=== PATIENT | male | born 1945 ===

== ENCOUNTER 2024-10-12 13:56 | Outpatient (AMB) | payer MEDICARE, MEDICAID, SELFPAY ==
--- NOTE | 2024-10-12 14:09 | MHC.OFFVIS ---
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 There was reported in the history about lightheadedness although patient says that he just slipped and fell out of the shower at his daughter's place in [facility]. Patient was then brought to the emergency room there and add observation and subsequently an echocardiogram which showed hyperdynamic LV ejection fraction with asymmetric left ventricular hypertrophy suggestive of hypertrophic cardiomyopathy. Patient also was noted to have PACs. Patient was started on Eliquis although from the records it is not clear why he was started on Eliquis. Does not recall ever being told that he had a stroke or atrial fibrillation. This part of the history is unclear. Have tried to contact the daughter to get more information regarding this. For now will continue Eliquis. He said he has had irregular pulse ever since he was in the [employer]. He occasionally feels a skipped heartbeats but does not have any prolonged palpitation irregular heartbeat. He said he is generally very functional and active and denies any lightheadedness or syncope. Does have history of hypertension, hyperlipidemia as well as diabetes. Never had a coronary event or has no evidence of coronary artery disease in the past. His EKGs abnormal. He smokes. He said today he slipped on ice and fell but was able to brace his fall and had some facial scrapes. Did not lose consciousness. Did not have a head injury. Denies any headache or any other neurologic symptoms. FORMERLY [facility], [facility] Family History Father No problems noted. Mother HTN (hypertension) Social History Patient Tobacco Use Status: Current everyday Tobacco user Review of Systems Const Denies chills, Denies daytime sleepiness, Denies fatigue, Denies fever(s), Denies frequent falls, Denies poor appetite, Denies snoring, Denies stops breathing during sleep, Denies weakness, Denies weight gain and Denies weight loss Eyes Denies loss of vision ENT Denies dizziness and Denies hearing loss Card Denies chest pain, Denies claudication, Denies leg edema, Denies lightheadedness, Denies palpitations, Denies dyspnea, Denies dyspnea on exertion and Denies orthopnea Resp Denies cough, Denies excessive phlegm production, Denies dyspnea, Denies dyspnea on exertion, Denies snoring and Denies wheezing GI Denies abdominal pain, Denies hematochezia, Denies change in bowel habits, Denies nausea and Denies vomiting Denies dysuria and Denies urinary frequency Musc Denies arthralgias, Denies muscle weakness, Denies numbness and Denies other (frequent falls) Skin/Breast Denies nail changes and Denies rash Neuro Denies Abnormal speech present, Denies dizziness, Denies frequent falls, Denies loss of vision, Denies memory loss, Denies numbness and Denies weakness Psych Denies depression and Denies memory loss Endo Denies fatigue and Denies palpitations Igor/Lymph Reports easy bruising and Reports other (anemia) Aller/Immun Denies wheezing Physical Exam Vital Signs: Last Vital Signs Pulse 58 10/12/24 14:11 BP 118/80 10/12/24 14:11 BMI result Body Mass Index 28.6 Const General: cooperative, comfortable, no acute distress, alert and awake Nutritional Appearance: overweight Orientation/consciousness: patient oriented x3 Limitations: no limitations HEENT Head: Yes normocephalic and Yes other (Some scrape on his nose) Neck Neck: Yes trachea midline, Yes supple and Yes no JVD Chest Chest palpation & inspection: normal inspection of the chest Resp Effort & Inspection: normal respiratory effort Auscultation: clear to auscultation bilaterally and diminished lung sounds Cardio Jugular venous distension: no JVD Rate: regular rate Rhythm: abnormal rhythm with ectopic beats Heart sounds: S1 normal heart sound present, S2 normal heart sound present, no click, no gallops, no murmurs and no rubs GI Auscultation: normal bowel sounds Skin General skin exam: no rashes or lesions noted Neuro General: patient oriented x3 and no focal motor deficits Speech: No Abnormal speech present Extrem General: Yes no clubbing, cyanosis or edema Psych Appearance: grossly normal Office Procedures EKG Details: EKG shows sinus bradycardia with PACs with diffuse T-wave changes in the precordial leads which may suggest ischemia versus repolarization abnormality with underlying right bundle-branch block [id number], Complete Assessment & Plan Assessment & Plan (1) Cardiac arrhythmia: Code(s): I49.9 - Cardiac arrhythmia, unspecified Category: Medical Plan: Cardiac arrhythmias in this elderly gentleman with predominantly noted to be having PACs. This could be precursor for atrial fibrillation. There was no mentioned of atrial fibrillation in the charts from an outside hospital. However it is likely that he could have asymptomatic atrial fibrillation. I would for now continue his Eliquis therapy. I would suggest a 30 day event monitor to assess for presence of atrial fibrillation that would then require lifelong Eliquis therapy. In absence of atrial fibrillation on event monitor not sure what the indication for Eliquis is, would like to obtain records and or talk to the daughter regarding prescription of Eliquis. For now continue Eliquis. Semi annual renal function test should be pursued. I have Holter monitor from June which showed a wide complex tachycardia which could represent nonsustained VT versus atrial tach with aberrancy. Will need ischemic workup, see below (2) Abnormal EKG: Code(s): R94.31 - Abnormal electrocardiogram [ECG] [EKG] Category: Medical Plan: Abnormal EKG in this elderly gentleman with multiple risk factors clinically hypertension, diabetes, smoking, hyperlipidemia. I will require ischemic workup to rule out any evidence of significant myocardial ischemia. Obtain a 30 day event monitor as about to assess for arrhythmia burden on current therapy with metoprolol. Could be related to hypertrophic cardiomyopathy. (3) Hypertrophic cardiomyopathy: Code(s): I42.2 - Other hypertrophic cardiomyopathy Category: Medical Plan: Hypertrophic cardiomyopathy without any obstructive physiology. Currently not having any symptoms. Continue metoprolol therapy. Will obtain a exercise stress test to evaluate for arrhythmic burden and blood pressure changes. Also 30 day event monitor to see if he has persistent wide complex tachycardia/nonsustained ventricular tachycardia that may require further evaluation with cardiac MRI. Will follow with him in 3 months time. Thank you for allowing me to partake in his care Orders: Orders CA stress test Today R94.31 - Abnormal electrocardiogram [ECG] [EKG] ECG 30 day event monitor Today I49.9 - Cardiac arrhythmia, unspecified NM cardiolite stress test 2 Weeks R07.9 - Chest pain, unspecified, R94.31 - Abnormal electrocardiogram [ECG] [EKG] Coding Level of Care Code New Pt Level 4 (34864) Complex EM visit Add On G2211 Diagnoses Cardiac arrhythmia I49.9 Abnormal EKG R94.31 Hypertrophic cardiomyopathy I42.2 CPT Codes EKG - CPT: 35792-[id number], Complete ([id number])
[2024-10-12 14:11] VITALS: BP 118/80; PULSE 58; BMI 28.6
--- OUTSIDE RECORDS SUMMARY | 2024-10-12 14:14 | XMS_ITS | Encounter Summary ---
Author Organization [facility], Located [facility] Address [address] [place] [address] Care Team Providers Care Pipe Line Maintenance Supervisor Name Role Phone Hank Aceves MD Primary Care Provider [phone] Encounter Details Date Type Department Care Team ([facility] st Contact Info) Description 09/06/2024 Telephone Formerly [facility] Heart & Vascular [place] [address] [phone] Jai Nation MD [address] [place] [phone] Social History Tobacco Use Types Packs/Day Years Used Date Smoking Tobacco: Never Assessed Sex and Gender Information Value Date Recorded Sex Assigned at Not on file Gender Identity Not on file Sexual Orientation Not on file documented as of this encounter Miscellaneous Notes * Telephone Encounter - Mae Obrien - 09/07/2024 1:31 PM EST Pt's primary care refilled his Eliquis FYI * Telephone Encounter - Elvia Nava MA - 09/07/2024 11:57 AM EST TCTP LVM we have consent on file to speak to selin. * Telephone Encounter - Jai Nation MD - 09/06/2024 12:59 PM EST Sure we can refill eliquis . Thanks. Send it in and I will sign the prescription. * Telephone Encounter - Jai Nation MD - 09/06/2024 12:58 PM EST Which pills are we talking about. * Telephone Encounter - Elvia Nava MA - 09/06/2024 12:30 PM EST Will you cont to filll these meds. You treated this pt at . Or should I verify that he has a PCP that can fill them for him? Pt will not being fup with you for care. * Telephone Encounter - Mae Obrien - 09/06/2024 11:19 AM EST Pt's daughter is expecting a call back today. * Telephone Encounter - Mae Obrien - 09/06/2024 10:47 AM EST Pt was prescribed medication in the hospital when he saw Dr Covarrubias. He is not currently a Pt. 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 Pt's daughter states Dr Covarrubias was adamant about him staying on meds. Daughter wants to know if Dr Covarrubias can prescribe meds until he is estab lished with his new provider. documented in this encounter Plan of Treatment Not on file documented as of this encounter Visit Diagnoses Not on filedocumented in this encounter Care Teams Pipe Line Maintenance Supervisor Relationship Specialty Start Date End Date Hank Aceves MD [address] [place] [id number] PCP - General Internal Medicine 07/06/24 documented as of this encounter
--- OUTSIDE RECORDS SUMMARY | 2024-10-12 14:14 | XMS_ITS | Clinical Summary ---
Author Organization [address] Address [address] [place] [phone] Phone Care Team Providers Care Brim Stiffener Name Role Phone Hank Aceves MD Primary Care Provider [phone] Allergies No known active allergies Medications losartan (COZAAR) 100 mg tablet Take 1 tablet (100 mg total) by mouth daily. Active metFORMIN (GLUCOPHAGE) 500 mg Immediate Release tablet Take 1 tablet (500 mg total) by mouth daily with breakfast. Active metoprolol succinate XL (TOPROL-XL) 100 mg 24 hr tablet Take 1 tablet (100 mg total) by mouth daily. Take with or immediately following a meal. Active simvastatin (ZOCOR) 20 mg tablet Take 1 tablet (20 mg total) by mouth nightly. Active aspirin 81 mg chewable tablet Take 1 tablet (81 mg total) by mouth daily. 30 tablet 4 Active Active Problems Problem Noted Date Diagnosed Date Near syncope 07/04/2024 Type 2 diabetes mellitus 07/04/2024 Social History Tobacco Use Types Packs/Day Years Used Date Smoking Tobacco: Every Day Cigarettes Tobacco Cessation:Ready to Q uit: Not Asked; Counseling Given: Not Answered Alcohol Use Standard Drinks/Week Comments Yes 0 (1 standard drink = 0.6 oz pur e alcohol) rarely [facility] Utilities Answer Date Recorded In the past 12 months has [employer], gas, oil, or water [employer] threatened to shut off services in your home? No 07/04/2024 AUDIT-C Answer Date Recorded Q1: How often do you have a drink containing alcohol? Never 07/04/2024 Q2: How many drinks containi ng alcohol do you have on a typical day when you are drinking? Patient does not drink Q3: How often do you have si x or more drinks on one occasion? Never 07/04/2024 PHQ-2 Answer Date Recorded PHQ-2 Total Score 0 07/04/2024 Hunger Vital Sign Answer Date Recorded Within the past 12 months, y ou worried that your food would run out before you got the money to buy more. Never true 07/04/20 24 Within the past 12 months, t he food you bought just didn't last and you didn't have money to get more. Never true 07/04/2024 PRAPARE - Transportation Answer Date Re corded In the past 12 months, has l ack of transportation kept you from medical appointments or from getting medications? No 06/24 In the past 12 months, has l ack of transportation kept you from meetings, work, or from getting things needed for daily living? No 07/04/2024 Housing Stability Answer Date Recorded What is your living situation today? I have a [facility] place to live 07/04/2024 Housing Stability Not on file 07/04/2024 Interpersonal Safety Answer Date Record ed Is there anyone in your life that is hurting or threatening you in anyway? no 07/04/2024 Physical Indicators of Abuse No evidence of phys ical abuse 07/04/2024 Sex and Gender Information Value Date Recorded Sex Assigned at Not on file Legal Sex Male 1:18 PM EST Gender Identity Male 07/04/2024 1:35 PM EST Sexual Orientation Not on file Last Filed Vital Signs Vital Sign Reading Time Taken Comments Blood Pressure 151/83 07/06/2024 5:25 AM EST Pulse 53 07/06/2024 5:25 AM EST Temperature 36.5 ??C (97.7 ??F) 07/06/2024 5:25 AM ES T Respiratory Rate 18 07/06/2024 5:25 AM EST Oxygen Saturation 94% 07/06/2024 5:25 AM EST Inhaled Oxygen Concentration - - Weight 74.7 kg (164 lb 10.9 oz) 07/04/2024 1:26 PM EST Height 167.6 cm (5' 6 ) 07/04/2024 1:26 PM EST Body Mass Index 26.58 07/04/2024 1:26 PM EST Plan of Treatment Health Maintenance Due Date Last Done Comments Pneumococcal Vaccine (50+ ye ars) (1 of 2 - PCV) 01/28/1951 Diabetic eye exam 01/28/1956 Diabetic foot exam 01/28/1956 Hemoglobin A1C 01/28/1956 Urine Microalbumin 01/28/1956 HIV screening 1959 Hepatitis C screening 01/28/1964 Tetanus adult (Td q 10,TDAP once) 1966 Lung Cancer Screening 01/28/1996 Shingles vaccine (Shingrix) (1 of 2 - Shingrix (RZV) 2 Dose Standard Series) 01/28/1996 RSV Discussion (1 - 1-dose 7 5+ series) 2021 Influenza vaccine 03/24/2024 Covid-19 vaccine series (2023- season) 2024 LDL monitoring 07/05/2025 07/05/2024 Meningococcal Vaccine Aged Out No glenny joanna eligible based on patient's age to complete this topic Procedures Procedure Name Priority Date/Time Associated Diagnosis Comments LIPID PANEL Routine 07/05/2024 5:20 AM EST from Last 3 Months or Most Recently Relevant to Health Maintenance Results * Lipid panel (07/05/2024 5:20 AM EST) Cholesterol 131 See Comment mg/dL 07/05/2024 12:33 PM [facility] Comment: Cholesterol Reference Range: ? Desirable: ?? <200 mg/dL ? Borderline: ??200-240 mg/dL ? High Risk: ?? >240 mg/dL HDL 45 See Comment mg/dL 07/05/2024 12:33 PM [facility] Comment: HDL Reference Range: Low: <40 High: > or = 60 Triglycerides 114 See Comment mg/dL 07/05/2024 12:33 PM [facility] Comment: Triglyceride Reference Range: ?Normal: ? <150 mg/dL ?Borderline High: ??150-199 mg/dL ?High: ? 200-499 mg/dL ?Very High: ?>or= 500 mg/dL LDL Calculated 65 See Comment mg/dL 07/05/2024 12:33 PM EST [facility] Comment: Effective 01/29/2022, LDL is calculated using the Rivera-NIH equation, which is more accurate than the Friedewald and Bennett-Farooq equations. LDL Reference Range: Optimal: ? <100 mg/dL Near/Above Optimal: ??100-129 mg/dL Borderline High: ? 130-159 mg/dL High: ?160-189 mg/dL Very High: ? >or= 190 mg/dL Blood Venipuncture / Unknown 07/05/2024 5:20 AM EST 07/05/2024 12:08 PM EST Jai Nation MD LAB BLOOD [place] [address], [facility] [phone] from Last 3 Months or Most Recently Relevant to Health Maintenance Insurance MEDICARE [facility] MGD MEDICARE WELLCARE CHOICE [facility] MGD MEDICARE WELLCARE CHOICE [facility] MGD Advance Directives * Full Code (Latest Code Status on File) Date Activated Date Inactivated Comments 07/04/2024 7:59 PM 07/06/2024 6:12 PM Question Answer Comments With Whom was the Code Status Discussed? Patient Care Teams Brim Stiffener Relationship Specialty Start Date End Date Hank Aceves MD [address] [place] [address] PCP - General Internal Medicine 07/04/24
--- OUTSIDE RECORDS SUMMARY | 2024-10-12 14:14 | XMS_ITS | Clinical Summary ---
Author Organization [facility] Address [address] [place] [id number] Care Team Providers Care Lead Python Developer Name Role Phone Hank Aceves MD Primary Care Provider [phone] Medications Medication Sig Dispensed Refills Start Date End Date Status apixaban (ELIQUIS) 5 MG tabletIndications:Par oxysmal atrial flutter (HCC) Take 1 tablet (5 mg total) by mouth 2 (two) times a day. 60 tablet 08/04/2024 Active Encounters Date Type Department Care Team Description 09/06/2024 Telephone Formerly named [facility] Vascular [address] [phone] Jai Nation MD 08/04/2024 Refill Formerly named [facility] Vascular [address], [address] [phone] Jai Nation MD 08/01/[address] [phone] Jai Nation MD 07/27/2024 Documentation Formerly named [facility] [address] [phone] Lorena Eid APRN 07/25/[address] [phone] Lorena Eid APRN from Last 3 Months Social History Tobacco Use Types Packs/Day Years Used Date Smoking Tobacco: Never Assessed Sex and Gender Information Value Date Recorded Sex Assigned at Not on file Gender Identity Not on file Sexual Orientation Not on file Plan of Treatment Health Maintenance Due Date Last Done Comments Hepatitis C Virus Screening 1945 Creatinine with GFR 01/28/1956 Foot Exam 01/28/1956 Hemoglobin A1C 01/28/1956 Lipid Panel 01/28/1956 Ophthalmology Exam 01/28/1956 Microalbumin/Creatinine Ratio Urine 01/28/1964 DTaP/Tdap/Td Vaccines (1 - Tdap) 1965 Pneumococcal Vaccines 50+ (1 of 2 - PCV) 1965 Zoster (Shingles) Vaccine (1 of 2) 01/28/1996 RSV Vaccine 60 years and old er and Patients (1 - 1-dose 75+ series) 2021 Influenza Vaccine 03/24/2024 COVID-19 Vaccine ( - 2023-2 5 season) 2024 Hepatitis B Vaccines Aged Out No long er eligible based on patient's age to complete this topic Procedures Procedure Name Priority Date/Time Associated Diagnosis Comments CAM PATCH 8-14 DAYS - OFFICE WHOLESALE PARTS SALESPERSON Routine 07/27/2024 7:57 AM EST NSVT (nonsustained ventricular tachycardia) (HCC) from Last 3 Months Results * CAM PATCH 8-14 DAYS - OFFICE WHOLESALE PARTS SALESPERSON (07/27/2024 7:57 AM EST) Anatomical Region Laterality Modality Deputy Chief Executive 07/26/2024 Narrative 07/27/2024 9:03 AM EST Predominant rhythm: SB Bundle Branch Block (BBB) Atrial Flutter (AFL) 1.2 % Atrial Tachycardia (AT) 5 episodes, Longest/Fastest 3.8 h @ Avg 126 bpm up to 142 bpm Ventricular Tachycardia (VT) 1 episode, 16 beats @ Avg 129 bpm up to 151 bpm Junctional Rhythm (JR) Accelerated Idioventricular Rhythm (AIVR) PAC 14 % PVC 0.6 % Other considerations Heart rates <40 bpm occurred during JR accounting for <1% of the total time. Impression Sinus rhythm with episodes of paroxysmal atrial flutter with up to 2-1 conduction and a burden of 1.2%, frequent atrial ectopy including paroxysmal atrial tachycardia and one 16 beat episode of nonsustained ventricular tachycardia. ??No significant pauses. ??No patient reported symptoms. Lorena Eid APRN CV CARDIAC SERVICE S ORDERABLES from Last 3 Months Care Teams Lead Python Developer Relationship Specialty Start Date End Date Hank Aceves MD [address] [place] [id number] PCP - General Internal Medicine 07/06/24
== END 2024-10-12 14:44 | disposition home or self-care (01) ==
PROVIDERS: PCP Internal Medicine; Visit Provider Internal Medicine Cardiovascular Disease
DX: I49.9 Cardiac arrhythmia, unspecified (principal); R94.31 Abnormal electrocardiogram [ECG] [EKG]; I42.2 Other hypertrophic cardiomyopathy
CPT/HCPCS: 93010; 99204; G2211

== ENCOUNTER → 2024-10-12 13:56 | Outpatient (BNVA) | payer SELFPAY | PROVIDERS: PCP Internal Medicine; Visit Provider Internal Medicine Cardiovascular Disease | DX: I49.9 Cardiac arrhythmia, unspecified (principal); R94.31 Abnormal electrocardiogram [ECG] [EKG]; I42.2 Other hypertrophic cardiomyopathy | CPT/HCPCS: 93005; 99202 ==